=== PATIENT | female | born 1980 | race Hispanic/Latino ===

== ENCOUNTER 2018-10-24 11:36 | Emergency (ER) | payer SELFPAY ==
[2018-10-24] MEDS ORDERED: MORPHINE 4 MG/ML SYR ONE (13:18)
[2018-10-24] MEDS ORDERED: ONDANSETRON 4 MG/2 ML VIAL ONE (13:18)
[2018-10-24 13:36] LABS: Absolute Lymphocytes (CBC) 1.8 K/uL (0.7-4.9); Basophils % 0.3 % (0-1.3); Hematocrit 37.5 % (36.0-45.0); Lymphocytes % 23.7 % (15.3-44.8); MPV 10.1 fL (7.6-11.3); RBC Red Blood Cell Count 4.06 M/uL (3.86-4.86)
[2018-10-24 13:51] LABS: ALT/SGPT 20 U/L (12-78); AST/SGOT 12 U/L (15-37); Albumin 3.8 g/dL (3.4-5.0); Alkaline Phosphatase 83 U/L (45-117); BUN Blood Urea Nitrogen 12 mg/dL (7-18); Bicarbonate 26 mmol/L (21-32); Bilirubin Total 0.2 mg/dL (0.2-1.0); Glucose Level 96 mg/dL (74-106); Potassium 3.9 mmol/L (3.5-5.1); Sodium Level 141 mmol/L (136-145)
--- NOTE | 2018-10-24 14:38 | RAD REPORT ---
EXAM DESCRIPTION: CT - Head Brain Wo Cont - 10/24/2018 2:03 pm CLINICAL HISTORY: Headache, suboccipital pain COMPARISON: None. TECHNIQUE: Axial 5 mm thick images of the head were obtained without IV contrast. All CT scans are performed using dose optimization technique as appropriate and may include automated exposure control or mA/KV adjustment according to patient size. FINDINGS: No intracranial hemorrhage, mass, edema or shift of mid-line structures. No acute infarcti on changes seen. No abnormal extra-axial fluid collections. Ventricles are normal. Mastoid air cells and visualized portions of the paranasal sinuses are clear. No acute bony findings. IMPRESSION: Negative non-contrast CT head examination. Suboccipital region as detailed on soft tissue neck examination.
--- NOTE | 2018-10-24 14:44 | RAD REPORT ---
EXAM DESCRIPTION: CT - Soft Tissue Neck W/Contr - 10/24/2018 2:03 pm CLINICAL HISTORY: Suboccipital pain and soft tissue swelling TECHNIQUE: During dynamic enhancement using 100 milliliters nonionic IV contrast, axial 5 millimeter thick images of the neck were obtained. All CT scans are performed using dose optimization technique as appropriate and may include automated exposure control or mA/KV adjustment according to patient size. FINDINGS: Intracranial portion of the examination is unremarkable. No globe or orbital content abnor mality. Mastoid air cells and paranasal sinuses are clear. No pharyngeal mucosal mass or asymmetry. No tongue base, soft palate, tonsil or epiglottis abnormalit y seen. Parapharyngeal fat is normal. No laryngeal abnormality. The parotid, submandibular and thyroid gland tissue show no suspicious findings. No vascular abnormal ity identified. No bony abnormality. In the left posterolateral subcutaneous fatty tissues there are 2 lymph nodes present 5-7 mm in size. At the more superior of the 2 lymph nodes there is adjacent edematous/ inflammatory stranding in the subcutaneous fatty tissues. A small 7 mm cyst is seen in the same region on the posterolateral right neck. Again there is a minimal amount of stranding in the subcutaneous fatty tissues adjacent to thi s lymph node. These changes are superficial to the musculature. The adjacent muscle layer and deeper paraspinal muscles are uninvolved. No abscess or drainable fluid collection. No foreign body is ident ified. IMPRESSION: Nonspecificstranding in the subcutaneous fatty tissues of the posterolateral left neck a nd to a lesser degree posterolateral right neck. These changes are at the C2 level of the suboccipita l region. Small adjacent reactive lymph nodes are present. Infectious/inflammatory stranding of the subcutaneous fat with reactive lymphadenopathy is most likel y. The patient has no abscess or drainable fluid collection. No foreign body. The remainder the examination is unremarkable.
[2018-10-24] MEDS ORDERED: KETOROLAC 30 MG/ML INJ ONE (15:02)
--- NOTE | 2018-10-24 15:23 | EDPHYS ---
Physician Documentation [facility] Name: Neli Ching Age: 38 yrs Sex: Female : 1980 Arrival Date: 10/24/2018 Time: 11:39 Bed 27 Private MD: ED Physician Rian Stanley HPI: 10/24 13:12 This 38 yrs old Female presents to ER via Ambulatory with complaints of LUMPS jmm ON NECK. 13:12 The patient or guardian complains of pain, that is acute, swelling. Onset: The jmm symptoms/episode began/occurred gradually, 1 day(s) ago. Modifying factors: The symptoms are alleviated by nothing. the symptoms are aggravated by movement, pressure. This is a 38 year old female with no chronic medical conditions that presents to the ED with complaints of left and right neck pain and swelling. Denies fever, denies cough, denies sore throat. Patient does not have a history of cellulitis or abscesses. . 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 - Social history:: Smoking status: Patient uses tobacco products, denies chronic smoking, but will smoke occasionally. - Ebola Screening: : Patient denies exposure to infectious person Patient denies travel to an Ebola-affected area in the 21 days before illness onset. ROS: 13:12 Constitutional: Negative for fever, chills, and weight loss, Cardiovascular: Negative jmm for chest pain, palpitations, and edema, Respiratory: Negative for shortness of breath, cough, wheezing, and pleuritic chest pain. 13:12 Neck: Positive for swollen nodes. 13:12 All other systems are negative. Exam: 13:12 Neck: Trachea midline, Supple Chest/axilla: Normal chest wall appearance and motion. jmm Cardiovascular: Regular rate and rhythm. No edema appreciated Respiratory: Normal respirations, no respiratory distress appreciated Abdomen/GI: Non distended, soft 13:12 Constitutional: The patient appears alert, awake, uncomfortable. 13:12 Head/face: left and right occipital swelling noted. 13:12 Musculoskeletal/extremity: ROM: intact in all extremities. 13:12 Skin: no erythema or induration noted. 13:12 Neuro: Orientation: is normal, Mentation: is normal, Memory: is normal. 13:12 Psych: Behavior/mood is pleasant, cooperative. Vital Signs: 11:51 BP 108 / 65; Pulse 51; Resp 15; Temp 98.4(TE); Pulse Ox 100% on R/A; Weight 54.43 kg; ss Height 5 ft. 1 in. (154.94 cm); Pain 8/10; 12:46 BP 112 / 69; mg2 14:31 BP 96 / 61; Pulse 51; Resp 18; Pulse Ox 100% on R/A; mg2 15:36 BP 103 / 67; Pulse 52; Resp 18; Temp 98; Pulse Ox 100% on R/A; Pain 1/10; mg2 11:51 Body Mass Index 22.67 (54.43 kg, 154.94 cm) ss MDM: 13:12 Patient medically screened. [facility] 15:21 Data reviewed: vital signs, nurses notes, lab test result(s), radiologic studies, CT [facility] scan. Counseling: I had a detailed discussion with the patient and/or guardian regarding: the historical points, exam findings, and any diagnostic results supporting the discharge/admit diagnosis, lab results, radiology results, the need for outpatient follow up, to return to the emergency department if symptoms worsen or persist or if there are any questions or concerns that arise at home. ED course: Patient is alert and non toxic in appearance in the ED. Imaging studies reveal reactive lymph nodes. Patient prescribed oral antibiotic and advised to follow up with pcp for reevaluation. Patient otherwise given strict return precautions. Patient and family understood and agrees with the plan of care. . 10/24 13:15 Order name: CBC with Diff; Complete Time: 13:41 [facility] 10/24 13:15 Order name: CMP; Complete Time: 13:53 [facility] 10/24 13:15 Order name: CT Soft Tissue Neck W/contr; Complete Time: 14:53 [facility] 10/24 13:15 Order name: CT Head Brain wo Cont; Complete Time: 14:53 [facility] 10/24 13:15 Order name: Saline Lock; Complete Time: 13:28 [facility] Administered Medications: 13:31 Drug: morphine 4 mg Route: IVP; Site: right antecubital; mg2 15:07 Follow up: Response: No adverse reaction mg2 13:31 Drug: Zofran 4 mg Route: IVP; Site: right antecubital; mg2 15:07 Follow up: Response: No adverse reaction mg2 15:07 Drug: Ketorolac 30 mg Route: IVP; Site: right antecubital; mg2 15:31 Follow up: Response: No adverse reaction; Marked relief of symptoms mg2 Disposition: 16:42 Co-signature as Attending Physician, Rian Stanley MD I agree with the assessment and kdr plan of care. Disposition: 10/24/18 15:23 Discharged to Home. Impression: Enlarged lymph nodes, unspecified. - Condition is Stable. - Discharge Instructions: Lymphadenopathy. - Prescriptions for Cephalexin 500 mg Oral Capsule - take 1 capsule by ORAL route every 6 hours for 10 days; 40 capsule. Ultracet 37.5- 325 mg Oral Tablet - take 1 tablet by ORAL route every 6 hours - for up to 5 days; do not exceed 8 tablets per day.; 20 tablet. orphenadrine citrate 100 mg Oral Tablet Sustained Release - take 1 tablet by ORAL route 2 times per day As needed; 20 tablet. - Medication Reconciliation Form, Thank You Letter, Antibiotic Education, Prescription Opioid Use form. - Follow up: Private Physician; When: 2 - 3 days; Reason: Recheck today's complaints, Continuance of care, Re-evaluation by your physician. Signatures: Dispatcher [employer] EDMS Rian Stanley MD MD [facility] Silvano Vogel PA PA jmm Smirch, Shelby, RN RN Mau Coleman RN RN mg2 Corrections: (The following items were deleted from the chart) 15:38 15:23 10/24/2018 15:23 Discharged to Home. Impression: Enlarged lymph nodes, mg2 unspecified. Condition is Stable. Forms are Medication Reconciliation Form, Thank You Letter, Antibiotic Education, Prescription Opioid Use. Follow up: Private Physician; When: 2 - 3 days; Reason: Recheck today's complaints, Continuance of care, Re-evaluation by your physician. michael
--- NOTE | 2018-10-24 15:23 | ER ---
Nurse's Notes [facility] Name: Neli Ching Age: 38 yrs Sex: Female : 1980 Arrival Date: 10/24/2018 Time: 11:39 Bed 27 Private MD: Diagnosis: Enlarged lymph nodes, unspecified Presentation: 10/24 11:49 Presenting complaint: Patient states: bumps to back of head x 3 days. Denies fever Pt ss c/o burning sensation to back of head. Also reports that pain seems to radiate down L side of neck and into shoulder. Pain is worse with ROM. Transition of care: patient was not received from another setting of care. Onset of symptoms was October 21, 2018. Risk Assessment: Do you want to hurt yourself or someone else? Patient reports no desire to harm self or others. Initial Sepsis Screen: Does the patient have a suspected source of infection?. Initial Sepsis Screen: Does the patient meet any 2 criteria? No. Patient's initial sepsis screen is negative. Care prior to arrival: None. 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 - Social history:: Smoking status: Patient uses tobacco products, denies chronic smoking, but will smoke occasionally. - Ebola Screening: : Patient denies exposure to infectious person Patient denies travel to an Ebola-affected area in the 21 days before illness onset. Screenin:46 Abuse screen: Denies threats or abuse. Denies injuries from another. Nutritional mg2 screening: No deficits noted. Tuberculosis screening: No symptoms or risk factors identified. Fall Risk None identified. Assessment: 12:47 General: Appears in no apparent distress. comfortable, Behavior is calm. Pain: mg2 Complains of pain in back of the head Pain does not radiate. Pain currently is 9 out of 10 on a pain scale. Quality of pain is described as aching. Neuro: Level of Consciousness is awake, alert, obeys commands, Oriented to person, place, time, situation. Cardiovascular: Capillary refill < 3 seconds Patient's skin is warm and dry. Respiratory: Airway is patent Respiratory effort is even, unlabored, Respiratory pattern is regular, symmetrical. GI: No signs and/or symptoms were reported involving the gastrointestinal system. : No signs and/or symptoms were reported regarding the genitourinary system. EENT: No signs and/or symptoms were reported regarding the EENT system. Derm: Skin is intact, is healthy with good turgor, Skin is pink, warm \T\ dry. normal. Musculoskeletal: Circulation, motion, and sensation intact. Capillary refill < 3 seconds. 12:48 Derm: Reports pain swelling at the back of the head. mg2 15:37 Reassessment: Patient states feeling better. mg2 Vital Signs: 11:51 BP 108 / 65; Pulse 51; Resp 15; Temp 98.4(TE); Pulse Ox 100% on R/A; Weight 54.43 kg; ss Height 5 ft. 1 in. (154.94 cm); Pain 8/10; 12:46 BP 112 / 69; mg2 14:31 BP 96 / 61; Pulse 51; Resp 18; Pulse Ox 100% on R/A; mg2 15:36 BP 103 / 67; Pulse 52; Resp 18; Temp 98; Pulse Ox 100% on R/A; Pain 1/10; mg2 11:51 Body Mass Index 22.67 (54.43 kg, 154.94 cm) ED Course: 11:39 Patient arrived in ED. cl3 11:51 Triage completed. ss 11:51 Arm band placed on right wrist. ss 12:33 Mau Coleman, RN is Primary Nurse. mg2 12:49 No provider procedures requiring assistance completed. mg2 12:50 Patient has correct armband on for positive identification. mg2 12:51 Silvano Vogel PA is PHCP. [facility] 12:51 Rian Stanley MD is Attending Physician. [facility] 13:27 Initial lab(s) drawn, by me, sent to lab. Inserted saline lock: 22 gauge in right lt1 antecubital area, using aseptic technique. 13:28 CBC with Diff Sent. lt1 13:28 CMP Sent. lt1 14:04 CT Soft Tissue Neck W/contr In Process Unspecified. EDMS 14:04 CT Head Brain wo Cont In Process Unspecified. EDMS 15:37 IV discontinued, intact, bleeding controlled, No redness/swelling at site. Pressure mg2 dressing applied. Administered Medications: 13:31 Drug: morphine 4 mg Route: IVP; Site: right antecubital; mg2 15:07 Follow up: Response: No adverse reaction mg2 13:31 Drug: Zofran 4 mg Route: IVP; Site: right antecubital; mg2 15:07 Follow up: Response: No adverse reaction mg2 15:07 Drug: Ketorolac 30 mg Route: IVP; Site: right antecubital; mg2 15:31 Follow up: Response: No adverse reaction; Marked relief of symptoms mg2 Outcome: 15:23 Discharge ordered by MD. jmerika 15:37 Discharged to home ambulatory, with family. mg2 15:37 Condition: stable 15:37 Discharge instructions given to patient, family, Instructed on discharge instructions, follow up and referral plans. medication usage, Demonstrated understanding of instructions, follow-up care, medications, Prescriptions given X 3. 15:38 Patient left the ED. mg2 Signatures: Dispatcher [employer] EDMS Silvano Vogel PA PA jmm Smirch, Shelby, RN RN Mau Coleman RN RN mg2 Soal, Mary Anne lt1 Zechariah Castillo cl3 Corrections: (The following items were deleted from the chart) 11:52 11:49 Presenting complaint: Patient states: bumps to back of head x 3 days. Denies ss fever Pt c/o burning sensation to back of head ss
== END 2018-10-24 15:38 | disposition home or self-care (01) ==
LOC: ER 11:36
DX: R59.9 Enlarged lymph nodes, unspecified (principal); Z72.0 Tobacco use
CPT/HCPCS: 36415; 70450; 70491; 80053; 85025; 96374; 96375; 99284; J2405; Q9967